=== PATIENT | male | born 1990 ===

== ENCOUNTER 2016-05-08 18:52 | Emergency (ER) | payer SELFPAY | END 2016-05-08 18:53 | disposition home or self-care (01) | LOC: CED 18:52 | DX: T30.0 Burn of unspecified body region, unspecified degree (principal); Y99.0 Civilian activity done for income or pay; X15.0XXA Contact with hot stove (kitchen), initial encounter; Z53.21 Procedure and treatment not carried out due to patient leaving prior to being seen by health care provider ==